=== PATIENT | male | born 1995 | race Caucasian/White ===

== ENCOUNTER 2020-02-26 17:37 | Emergency (ER) | payer MEDICAID, SELFPAY ==
[2020-02-26 17:58] VITALS: BP 153/107; PULSE 129; RESP 20; TEMP 37.1; O2SAT 95; BMI 27.2
--- NOTE | 2020-02-26 18:02 | HMH.EDUTC ---
[facility] [place] Impression: Viral syndrome Disposition: Home, Self-Care Condition on Discharge: Good Instructions: DI for Viral Syndrome, Preventing the Spread of Coronavirus Discharge Instructions Additional Instructions: Drink plenty of fluids. Take tylenol for pain or fever. Take the medications as directed. Follow up with your regular doctor. If you start to feel more short of breath or have other severe symptoms, please return to the ER. GO TO THE ER FOR ANY WORSENING SYMPTOMS FOLLOW THE DIRECTIONS ON THE COVID-19 HAND OUT THAT WE GAVE YOU REGARDING SELF-ISOLATION UNTIL YOU KNOW YOUR COVID-19 RESULTS Prescriptions: Ondansetron [Zofran 4mg ODT] 4 mg PO Q8HP PRN #20 tab.rapdis PRN Reason: Nausea Transmission Status: Received by [facility] Referrals: PCP,No [Primary Care Provider] - Forms: Work/School Release Time of Disposition: 18:29 Medical Decision Making - Medical Records Medical records reviewed: No: I reviewed the patient's medical records. - Julio Inquiry Pt receiving controlled substance: No Vital Signs: 02/26/20 17:58 02/26/20 18:35 Temperature 98.7 F 98.7 F Temperature Source Oral Oral Pulse Rate 129 H Pulse Rate [Radial] 129 H Respiratory Rate 20 20 Blood Pressure 153/107 H Blood Pressure [Right Arm] 153/107 H Blood Pressure Mean [Right Arm] 122 Blood Pressure Source Automatic Cuff Blood Pressure Source [Right Arm] Automatic Cuff Blood Pressure Position Sitting Blood Pressure Position [Right Arm] Sitting 02 Sat by Pulse Oximetry 95 Oxygen Delivery Method Room Air Room Air - Lab Data Lab results reviewed: Yes: I reviewed the patient's lab results. Lab Results 02/26/20 18:22: Influenza Type A Ag Negative, Influenza Type B Ag Negative 02/26/20 18:22: Strep Scn Rapid Clinic Negative Orders (Tests/Meds): ORDERS Category Date Time Status Covid-19 Nasal PCR Sendout Nikko Stat Lab 02/26/20 17:46 Received Strep Screen Confirmation Stat Micro 02/26/20 18:22 [place] [facility] [place] - General Stated complaint: chills cough Time Seen by Provider: 02/26/20 18:02 Mode of Arrival: Ambulatory Source of Information: Patient Limitations: No Limitations Description of Symptoms (Recalled from Triage Doc. by RN): chills, temp, weak, mild cough HEENT Symptoms (Recalled from RN notes): Yes Resp Symptoms (Recalled from RN notes): No Skin Symptoms (Recalled from RN notes): No MS Symptoms (Recalled from RN notes): No Functional Status (Recalled from RN notes): wnl - History of Present Illness Provider Complaint: He c/o feeling very bad, having body aches and chilling since last night at around 2200. He states that his symptoms are getting worse. He denies a signicant sore throat. He denies any known exposure to COVID-19. But, thru his work he has been around several people. - Related Data Previous Rx's Medication Instructions Recorded Ondansetron [Zofran 4mg ODT] 4 mg PO Q8HP PRN #20 tab.rapdis 02/26/20 Allergies Allergy/AdvReac Type Severity Reaction Status Date / Time No Known Allergies Allergy Verified 02/26/20 18:01 - Worker's Comp Is this a Worker's Comp case?: No [facility] History - Hepatitis A Screen Drug use history?: No High risk sexual behaviors?: No History of sexually transmitted infection?: No Currently employed?: No Childcare worker?: No Do you have indoor plumbing?: Yes Do you have electricity?: Yes Attestation statement:: This patient has been screened for Hepatitis A risk factors. I have reviewed the patient's past medical history: Yes - Social History Alcohol Intake: never Occupational Status: other ROS Obtained: Yes All systems reviewed & no additional complaints - Constitutional Constitutional: Reports chills, Reports fever(s), Reports poor appetite, Reports malaise - Eyes Eyes: Denies eye discharge - ENT Ears, Nose, Mouth, and Throat: Denies dizziness, Denies otalgia
[2020-02-26 18:22] LABS: UTC Strep Screen (Rapid) Negative (Negative)
[2020-02-26 18:23] LABS: UTC Influenza A Antigen Negative (Negative); UTC Influenza B Antigen Negative (Negative)
[2020-02-26 18:35] VITALS: BP 153/107; PULSE 129; RESP 20; TEMP 37.1; O2SAT 95
[2020-02-28 15:59] LABS: Covid-19 Nasal PCR Sendout Lex Not Detected
== END 2020-02-26 18:36 | disposition home or self-care (01) ==
PROVIDERS: Emergency Provider Nurse Practitioner Family
DX: B34.9 Viral infection, unspecified (principal); Z20.828 Contact with and (suspected) exposure to other viral communicable diseases
CPT/HCPCS: 87804; 87880; 99202; U0004

== ENCOUNTER 2023-07-10 16:59 | Emergency (ER) | payer MEDICAID, SELFPAY ==
[2023-07-10 17:15] VITALS: BP 159/90; PULSE 121; RESP 19; TEMP 37.2; O2SAT 98; BMI 28.7
--- NOTE | 2023-07-10 17:30 | EXP.UTC ---
Discharge Plan Disposition Patient Disposition: Home, Self-Care Condition: Good Referrals Follow up/Referrals: Provider,Referral, MD [Primary Care Provider] - See instructions Activity Restrictions/Add. Instructions Additional Instructions/Restrictions: No sign of a bacterial infection. Likely viral. Viruses can take 7-14 days to run their course. Nasal saline and bulb syringe or nose Delores to remove nasal drainage to help with nasal congestion. Hard to eat, drink, sleep with nasal congestion so important to keep this cleaned out. Monitor temp. Tylenol or Motrin as needed for pain or fever Encourage fluids, water, Gatorade, Powerade, Pedialyte if infant/toddler/child Warm salt water gargles Warm fluids Sore throat lozenges Sleep elevated Humidifier/vaporizer Follow-up immediately for new or worsening symptoms or no noticeable improvement over the next 48-72 hours. Clinical Impressions Clinical Impression: Influenza A Stand Alone Forms Stand Alone Forms: Work/School Release Instructions Patient Instructions: DI for Influenza -- Adult [facility]charge [facility] [facility] [place] General Stated complaint: body aches,chills,runny nose Mode of Arrival: Ambulatory Source of Information: Patient Limitations: No Limitations Time Seen by Provider: 07/10/23 17:30 Description of Symptoms (Recalled from Triage Doc. by RN): PATIENT C/O COUGH, SORE THROAT AND CHILLS X 4 DAYS HEENT Symptoms (Recalled from RN notes): Yes Resp Symptoms (Recalled from RN notes): Yes Skin Symptoms (Recalled from RN notes): No MS Symptoms (Recalled from RN notes): No Functional Status (Recalled from RN notes): WNL History of Present Illness Provider Complaint: 28 yr old male presents for cough, sore throat and chills for 4 days Related Data Allergies Allergy/AdvReac Type Severity Reaction Status Date / Time No Known Allergies Allergy Verified 02/26/20 18:01 Worker's Comp Is this a Worker's Comp case?: No [facility] Disclaimer: The information contained in this section may have been updated after the patient was seen, as this information can be updated by other users. Social History , [employer]) Smoking Status: Smoker, status unknown alcohol intake: never current occupational status: other Travel in the last 8 weeks: None ROS Obtained: Yes All systems reviewed & no additional complaints except as documented Constitutional Constitutional: Reports system reviewed and no additional complaints, except as documented, Reports as per HPI and Reports fever(s) Eyes Eyes: Reports system reviewed and no additional complaints, except as documented ENT Ears, Nose, Mouth, and Throat: Reports system reviewed and no additional complaints, except as documented, Reports as per HPI, Reports nasal congestion, Reports nasal discharge, Reports sinus pain, Reports sinus pressure and Reports sore throat Cardiovascular Cardiovascular: Reports system reviewed and no additional complaints, except as documented Respiratory Respiratory: Reports system reviewed and no additional complaints, except as documented Gastrointestinal Gastrointestingal: Reports system reviewed and no additional complaints, except as documented Integumentary/Breasts Skin/Breast: Reports system reviewed and no additional complaints, except as documented Neurologic Neurologic: Reports system reviewed and no additional complaints, except as documented Hematologic/Lymphatic Henatologic/Lymphatic: Reports system reviewed and no additional complaints, except as documented Allergic/Immunologic Allergic/Immunologic: Reports system reviewed and no additional complaints, except as documented Physical Exam General General appearance: alert and in no apparent distress Head Head exam: atraumatic Eye Eye exam: Present normal appearance and PERRL ENT ENT exam: Present normal exam, normal oropharynx, mucous membranes moist and TM's normal bilaterally Respiratory Respiratory exam: Present normal lung sounds bilaterally Cardiovascular Cardiovascular exam: Present regular rate and normal rhythm Neurological Exam Neurological exam: Present alert and oriented X3 Skin Skin exam: Present warm and intact Lymphatic Lymphatic Findings: no adenopathy Medical Decision Making Medical Records Medical records reviewed: Yes I reviewed the patient's medical records. Julio Inquiry Pt receiving controlled substance: No Julio was queried for this patient: No Vital Signs: 07/10/23 17:15 Temperature 98.9 F Temperature Source Oral Pulse Rate [Right Brachial] 121 H Respiratory Rate 19 Blood Pressure [Right Arm] 159/90 H Blood Pressure Mean [Right Arm] 113 Blood Pressure Source [Right Arm] Automatic Cuff Blood Pressure Position [Right Arm] Sitting 02 Sat by Pulse Oximetry 98 Oxygen Delivery Method Room Air Lab Data Lab results reviewed: Yes I reviewed the patient's lab results.
[2023-07-10 17:38] LABS: UTC Influenza A Antigen Positive (Negative); UTC Influenza B Antigen Negative (Negative); UTC Strep Screen (Rapid) Negative (Negative)
[2023-07-10 17:39] VITALS: BP 159/90; PULSE 121; RESP 19; TEMP 37.2; O2SAT 98
== END 2023-07-10 17:51 | disposition home or self-care (01) ==
PROVIDERS: Emergency Provider Nurse Practitioner Family
DX: J10.1 Influenza due to other identified influenza virus with other respiratory manifestations (principal); R05.9 Cough, unspecified; R09.81 Nasal congestion; R50.9 Fever, unspecified; R07.0 Pain in throat
CPT/HCPCS: 87804; 87880; 99203; 99212; G0463

== ENCOUNTER 2025-04-25 10:24 | Observation (INO) | payer SELFPAY ==
[2025-04-25 10:30] VITALS: BP 110/84; PULSE 103; RESP 16; TEMP 37.1; O2SAT 100; O2SAT 97; BMI 31.5
--- NOTE | 2025-04-25 10:39 | CT_ITS ---
FINAL REPORT TECHNIQUE: Thin section axial images are obtained through the abdomen and pelvis after intravenous contrast. Reconstruction images were obtained from the axial data. Exam was performed using dose reduction techniques. CLINICAL HISTORY: Possible abscess, perineum FINDINGS: LUNG BASES: Lung bases are clear. Heart size is normal. LIVER: The fusilli fatty infiltrated. No focal lesion. GALLBLADDER/BILIARY SYSTEM: Gallbladder is present. No gallstones. No biliary dilatation. SPLEEN: Mildly enlarged at 14 cm. PANCREAS: Unremarkable. ADRENALS: Unremarkable. KIDNEYS/URETERS/BLADDER: No hydronephrosis, renal mass, or renal stone. Unremarkable urinary bladder. GI TRACT: No small bowel obstruction or dilatation. Normal appendix. No acute colon abnormality. PELVIC ORGANS: Prostate normal in size for for age. LYMPH NODES/RETROPERITONEUM/MESENTERY: No lymphadenopathy. No abdominal aortic aneurysm. ABDOMINAL WALL: The abdominal wall is intact. FREE FLUID: No ascites. BONES: No acute osseous abnormality. OTHER: There is a collection along the left medial gluteal fold measuring 45 x 19 mm which contacts the posterior left anus concerning for abscess. Remaining perianal soft tissues are unremarkable. There is no soft tissue air. IMPRESSION: Collection along the left medial gluteal fold concerning for abscess which may contact the posterior left anus. Anal fistula not excluded. Fatty infiltration of the liver and mild splenomegaly. Reviewed, Interpreted and Dictated by Sima Andres MD Transcribed by Erlinda Hoff Authenticated and [facility]
--- NOTE | 2025-04-25 10:44 | ED_ITS ---
Discharge Plan Disposition Patient Disposition: Admitted Condition: Fair Clinical Impressions Clinical Impression: Perianal abscess Discharge ED Provider: Nate Romero General Adult HPI General Chief complaint: Skin/Abscess/Foreign Body Stated complaint: infection/abcess on buttox Time Seen by Provider: 04/25/25 10:36 Mode of Arrival: Ambulatory Source of Information: Patient Description of Symptoms (Recalled from ER Triage Doc. by RN): PATIENT PRESENTS TO ED FOR ABSCESS NEAR HIS BUTTOCKS IN THE GROIN AREA. STATES THIS HAS BEEN THERE FOR A WHILE AND IS VERY UNCOMFORTABLE SITTING DOWN. History of Present Illness HPI narrative: Wilner Newman is a 30M with no significant past medical history who presents to the emergency department for complaints of possible abscess to his left gluteal/perineum area. Patient states that has been present over the last several months, however he has not had insurance and has not been able to have it looked at. He states that over the last 2 days, it has become increasingly swollen and painful and it is difficult to sit on it due to pain. He denies any fevers. He does report pain with defecation but no dysuria, hematuria or scrotal swelling. States that nothing like this has ever happened before. Related Data Home Medications ?Medication ?Instructions ?Recorded ?Confirmed cetirizine 10 mg tablet 10 mg PO DAILY PRN allergies 04/25/25 04/25/25 Allergies Allergy/AdvReac Type Severity Reaction Status Date / Time No Known Allergies Allergy Verified 02/26/20 18:01 [facility] Disclaimer: The information contained in this section may have been updated after the patient was seen, as this information can be updated by other users. Medical History (Updated 04/25/25 @ 17:24 by Delores Rivera RN) Seasonal allergies Surgical History (Updated 04/25/25 @ 17:25 by Delores Rivera RN) H/O wisdom tooth extraction Social History (Updated 04/25/25 @ 17:25 by Delores Rivera RN) Smoking Status: Never smoker alcohol intake: never current occupational status: other Travel in the last 8 weeks?: None Have you lived/traveled outside US in past 30 days?: No Contact w/someone who lives/traveled outside US past 30 days?: No Exposure to someone with infectious disease in past 14 days?: No Do you have a fever (greater than 100.4 F or 38 C)?: No Have you tested positive for COVID-19?: No Exposed to someone with COVID-19 in past 14 days?: No Do you have a sore throat?: No Do you have a cough?: No Do you have any weakness?: No Do you have any diarrhea?: No Are you experiencing any unusual bleeding?: No Do you have any muscle aches/pain?: No Do you have any abdominal pain?: No Are you experiencing loss of taste or smell?: No ROS Obtained: Yes Systems reviewed as appropriate & no additional complaints except as documented Physical Exam General General appearance: alert, in no apparent distress and anxious Head Head exam: atraumatic Eye Eye exam: Present normal appearance ENT ENT exam: Present normal external ear exam Neck Neck exam: Present full ROM Chest Chest inspection: Present symmetric chest wall rise Respiratory Respiratory exam: Present normal lung sounds bilaterally; Absent respiratory distress, wheezes or stridor Cardiovascular Cardiovascular exam: Present regular rate and normal rhythm Abdominal Exam Abdominal exam: Present soft; Absent tenderness or guarding Rectal Exam comment: Ecchymosis, fluctuance and erythema to the left medial gluteal fold close to the perineum. exam: Present other (Significant erythema, fluctuance and tenderness to the left medial gluteal fold just posterior to the perineum. This does not appear to involve the scrotum. It may involve the rectum.) Extremities Exam Extremities exam: Present normal inspection Back Exam Back exam: Present normal inspection Neurological Exam Neurological exam: Present alert and oriented X3 Psychiatric Psychiatric exam: Present normal affect Skin Skin exam: Present warm and dry Medical Decision Making Medical Records Screening: Per USPSTF and CDC recommendations, given the prevalence of disease in our region, it is our hospital?s policy to screen for HIV and viral Hepatitis for all patients aged 18 and over and those with ongoing risk factors. Julio Inquiry Pt receiving controlled substance: No Vital Signs: 04/25/25 10:30 04/25/25 10:30 04/25/25 10:30 Temperature 98.8 F 98.8 F Temperature Source Oral Pulse Rate 103 H Pulse Rate [Right] 103 H Respiratory Rate 16 16 Blood Pressure 110/84 110/84 Blood Pressure [Right Arm] 110/84 Blood Pressure Mean [Right Arm] 92 Blood Pressure Source [Right Arm] Blood Pressure Position [Right Arm] 02 Sat by Pulse Oximetry 97 97 100 Oxygen Delivery Method 04/25/25 10:45 04/25/25 17:10 04/25/25 17:16 Temperature 97.9 F 98.3 F Temperature Source Oral Pulse Rate 99 H 88 Pulse Rate [Right] 79 Respiratory Rate 16 16 Blood Pressure 145/100 H 131/93 H Blood Pressure [Right Arm] 131/79 Blood Pressure Mean [Right Arm] 96 Blood Pressure Source [Right Arm] Automatic Cuff Blood Pressure Position [Right Arm] Supine 02 Sat by Pulse Oximetry 96 98 Oxygen Delivery Method Room Air Room Air Lab Data Lab Results 04/25/25 11:00: WBC 10.0, RBC 5.55, Hgb 15.9, Hct 45.6, MCV 82.2, MCH 28.6, MCHC 34.9, RDW 12.5, Plt Count 185, MPV 9.9, Neut % (Auto) 63.5, Lymph % (Auto) 23.7, Grayson % (Auto) 6.4, Eos % (Auto) 5.6, Baso % (Auto) 0.4, Neut # (Auto) 6.3, Lymph # (Auto) 2.4, Grayson # (Auto) 0.6, Eos # (Auto) 0.6 H, Baso # (Auto) 0.0, Sodium 137, Potassium 4.0, Chloride 104, Carbon Dioxide 27, Anion Gap 10.0, BUN 11, Creatinine 0.90, Estimated Creat Clear 169, Estimated GFR 99, Est GFR ( Amer) 120, Glucose 97, Calcium 9.5, Total Bilirubin 1.6 H, AST 35, ALT 57, Alkaline Phosphatase 69, C-Reactive Protein 6.8 H, Total Protein 8.0, Albumin 5.0, Globulin 3.0, Albumin/Globulin Ratio 1.7 04/25/25 11:29: Urine Color Yellow, Urine Appearance Clear, Urine pH 6.5, Ur Specific Dumont 1.010, Urine Protein Negative, Urine Glucose (UA) Negative, Urine Ketones Negative, Urine Blood Negative, Urine Nitrate Negative, Urine Bilirubin Negative, Urine Urobilinogen 0.2, Ur Leukocyte Esterase Negative, Urine RBC None, Urine WBC None, Ur Squamous Epith Cells Occasional, Urine Bacteria Trace 04/25/25 11:00 04/25/25 11:00 Orders (Tests/Meds): ED MEDICATIONS Generic Name Dose Route Start Last Admin Trade Name Freq PRN Reason Stop Dose Admin Acetaminophen 650 mg 04/25/25 18:42 Acetaminophen 325mg Tab PO 05/25/25 18:41 Q4HP PRN Fever or Mild Pain (1-3) Hydrocodone Bitart/Acetaminophen 1 tab 04/25/25 18:42 Hydrocodone/Apap 5/325 Mg Tablet PO 05/25/25 18:41 Q4HP PRN Moderate Pain (4-6) Piperacillin Sod/Tazobactam 50 mls @ 100 mls/hr 04/26/25 00:00 Sod 3.375 gm/ Sodium Chloride IV 05/06/25 00:00 Q6H ROXANA Vancomycin HCl 2,000 mg/ 250 mls @ 125 mls/hr 04/25/25 19:45 Sodium Chloride IV 04/25/25 21:44 ONCE ONE Miscellaneous 1 each 04/25/25 16:30 04/25/25 18:31 Vancomycin Consult Request NOTAPPLIC 05/25/25 16:29 Not Given [facility] Miscellaneous 1 each 04/25/25 19:00 04/25/25 19:33 Vancomycin Consult Request NOTAPPLIC 05/25/25 18:59 Not Given [facility] Morphine Sulfate 4 mg 04/25/25 18:42 Morphine 4mg/Ml Syringe IV 05/25/25 18:41 Q4HP PRN Severe Pain (7-10) Ondansetron HCl 4 mg 04/25/25 18:42 Ondansetron 4mg/2ml Vial IV 05/25/25 18:41 Q6HP PRN Nausea Discontinued Medications Generic Name Dose Route Start Last Admin Trade Name Bhakti PRN Reason Stop Dose Admin Piperacillin Sod/Tazobactam 100 mls @ 200 mls/hr 04/25/25 16:27 04/25/25 19:33 Sod 4.5 gm/ Sodium Chloride IV 04/25/25 16:56 Infused ONCE ONE Infusion Vancomycin HCl 2,000 mg/ 250 mls @ 125 mls/hr 04/25/25 16:45 04/25/25 19:37 Sodium Chloride IV 04/25/25 18:44 Not Given ONCE ONE Iopamidol 75 ml 04/25/25 11:21 04/25/25 11:22 Iopamidol-370 (76%);100ml Bottle IV 04/25/25 11:22 75 ml ONCE ONE Administration Sodium Chloride 10 ml 04/25/25 11:21 04/25/25 11:22 Sodium Chloride 0.9% 10ml Syr (Rad Only) IV 04/25/25 11:22 10 ml ONCE ONE Administration ORDERS Category Date Time Status CT abdomen pelvis w con Stat Cat Scan 04/25/25 10:39 Completed CBC w/Auto Diff [Complete Blood Count Auto Diff] Stat Lab 04/25/25 11:00 Completed CMP [Comprehensive Metabolic Panel] Stat Lab 04/25/25 11:00 Completed CRP [C-Reactive Protein] Stat Lab 04/25/25 11:00 Completed UA [Urinalysis and Microscopic] Stat Lab 04/25/25 11:29 Completed Blood Culture Stat Micro 04/25/25 17:00 Received Medical Decision Narrative: Wilner Newman is a 30M with no significant past medical history who presents to the emergency department for complaints of possible abscess to his left gluteal/perineum area. Patient states that has been present over the last several months, however he has not had insurance and has not been able to have it looked at. He states that over the last 2 days, it has become increasingly swollen and painful and it is difficult to sit on it due to pain. He denies any fevers or abdominal pain. He does report pain with defecation but no dysuria, hematuria or scrotal swelling. States that nothing like this has ever happened before. On arrival, patient is normotensive, mildly tachycardic, afebrile, oxygen saturation appropriate on room air. Physical exam, as stated above, revealed an overall well-appearing male in no respiratory distress. He does appear anxious and somewhat uncomfortable. Genital and buttock exam shows area of swelling, fluctuance and ecchymosis to the left gluteal fold along the medial aspect close to the perineum. It does not appear to involve the scrotum with no scrotal swelling or erythema. It is within close proximity to the rectum. Differential diagnosis includes, but is not limited to: Gluteal abscess, perirectal abscess, rectal abscess, AVM, among others. The most morbid conditions were considered and workup was based on these. Workup in the emergency department clued: CT abdomen pelvis with IV contrast, CBC with differential, CMP, urinalysis. Patient was offered pain medication, however he declines at this time. Workup shows no leukocytosis, No anemia, platelets within normal limits, electrolytes within normal limits. Total bilirubin mildly elevated 1.6. Urine without evidence of infection or blood. CT scan was interpreted by me personally. Patient has a collection along the left medial gluteal fold that tracks to the posterior left anus and this is concerning for abscess. Per radiology, it measures 45 x 19 mm. The remaining perianal soft tissues are unremarkable. Per radiology, anal fistula is not excluded. Given these findings, I do think patient would benefit from colorectal surgery evaluation as he may need a operative drainage of abscess with fistulotomy. Will discuss patient's case with the [facility]. I did discuss patient's case with Dr. Ramirez at the [facility] center who stated that they are on divert and would need to talk to the colorectal surgery team prior to accepting this patient, however they will be in the operating room until 8 PM and would likely not be available until then. Given this, I did discuss patient's case with Dr. Hoskins with the [facility] general surgery team and he stated that he would recommend patient be admitted with IV antibiotics and he will see the patient in the morning and likely perform I&D and determine if operative intervention is needed at that point. Recommended n.p.o. at midnight. I did discuss this plan with patient and his and they were in agreement to proceed with admission at this time. Patient was then started on IV vancomycin and Zosyn. I then discussed the patient's case with Dr. Ramirez with the hospital medicine service who accepted the patient for admission. Critical Care Critical Care Time Critical Care Time: No
[2025-04-25 10:45] VITALS: BP 145/100; PULSE 99; O2SAT 96
[2025-04-25 11:08] LABS: Hematocrit 45.6 % (42.0-52.0); Hemoglobin 15.9 g/dL (14.1-18.0); Immature Granulocytes % 0.4 %; Mean Corpuscular HGB Conc 34.9 g/dL (31.8-35.4); Mean Corpuscular Hemoglobin 28.6 pg (27.0-31.2); Mean Corpuscular Volume 82.2 fl (80-94); Nucleated Red Blood Cells % 0 %; Platelet Count 185 K/mm3 (142-424); Red Blood Count 5.55 M/mm3 (4.60-6.20); Red Cell Distribution Width-SD 37.1 fL; White Blood Count 10.0 K/mm3 (4.8-10.8)
[2025-04-25] MEDS: IOPAMIDOL-370 (76%);100ML BOTTLE 75 ML IV (11:22)
[2025-04-25] MEDS: SODIUM CHLORIDE 0.9% 10ML SYR (RAD ONLY) 10 ML IV (11:22)
[2025-04-25 11:26] LABS: Alanine Aminotransferase 57 U/L (12-78); Albumin Level 5.0 g/dl (3.5-5.0); Albumin/Globulin Ratio 1.7 (1.1-1.8); Alkaline Phosphatase 69 U/L (38-126); Anion Gap 10.0 mEq/L (5-15); Aspartate Amino Transferase 35 U/L (17-59); Bilirubin,Total 1.6 mg/dl (0.2-1.3); Blood Urea Nitrogen 11 mg/dl (9-20); Calcium 9.5 mg/dl (8.4-10.2); Carbon Dioxide 27 mmol/L (22.0-30.0); Chloride 104 mmol/L (98-107); Creatinine Clearance Estimated 169 mL/min (50-200); Creatinine,Serum 0.90 mg/dl (0.66-1.25); Estimated Glomerular Filt Rate 99 ml/min (>60); GFR (African American) 120 ML/MIN (>60); Globulin 3.0 g/dL (1.3-3.2); Glucose 97 mg/dl (74-100); Potassium 4.0 mmoL/L (3.5-5.1); Sodium 137 mmol/L (136-145); Total Protein,Serum 8.0 g/dl (6.3-8.2)
[2025-04-25 11:41] LABS: Microscopic, Urine URINE MICROSCOPIC (MICROSCOPIC)
[2025-04-25 11:50] LABS: Bilirubin,Urine Negative (Negative); Color,Urine YELLOW (Yellow); Glucose,Urine (UA) Negative (Negative); Ketones,Urine Negative (Negative); Leukocyte Esterase,Urine Negative (Negative); PH,Urine 6.5 (5.0-8.5); Protein,Urine Negative (Negative); Specific Gravity, Urine 1.010 (1.005-1.030); Urobilinogen,Urine 0.2 EU/dl (0.2)
--- NOTE | 2025-04-25 11:57 | PC.NURSE ---
Rounded on patient, no needs voiced at this time.
[2025-04-25 12:02] LABS: Bacteria,Urine Trace /lpf; Squamous Epithelial Cell,Urine Occasional #/hpf (0-5)
--- NOTE | 2025-04-25 12:44 | PC.NURSE ---
called [facility] per Dr Dupree for transfer for a perianal abscess with fistula. [facility] advised they would call back.
--- NOTE | 2025-04-25 13:52 | PC.NURSE ---
[facility] called and have not received imaging. Rad called and they will resend. This note by JeovannyRn
--- NOTE | 2025-04-25 15:10 | PC.NURSE ---
currently on phone with [facility] to check on status of transfer. [facility] advised colorectal was in surgery until 20:00
--- NOTE | 2025-04-25 15:18 | PC.NURSE ---
called [facility] per Dr Romero for transfer for perianal abscess with fistula. [facility] advised they would call back.
--- NOTE | 2025-04-25 15:29 | PC.NURSE ---
currently on phone with [facility] for transfer for perianal abscess with fistula.
--- NOTE | 2025-04-25 15:31 | PC.NURSE ---
[facility] advised they would call back.
--- NOTE | 2025-04-25 16:10 | PC.NURSE ---
Dr Romero on phone with [facility] at this time
--- NOTE | 2025-04-25 16:15 | PC.NURSE ---
Surgeon integrity consultant paged for Dr. Romero
[2025-04-25 16:50] LABS: C-Reactive Protein 6.8 mg/L (0-4)
--- NOTE | 2025-04-25 16:59 | PC.NURSE ---
REPORT GIVEN TO ESPERANZA RUSSELL FOR ROOM 219
[2025-04-25 17:10] VITALS: BP 131/79; PULSE 79; RESP 16; TEMP 36.6; O2SAT 98; BMI 30.7
[2025-04-25 17:16] VITALS: BP 131/93; PULSE 88; RESP 16; TEMP 36.8; O2SAT 96
[2025-04-25] MEDS: PIPERACILLIN/TAZO 4.5 GM in 0.9 % SODIUM CHLORIDE 100 ML IV (18:24)
--- NOTE | 2025-04-25 18:32 | PC.NURSE ---
pt resting in bed, A/O x4, call light in reach
--- NOTE | 2025-04-25 18:44 | P.HP_ITS ---
History of Present Illness *Admission Date: 04/25/25 *Reason for visit:: Perineal abscess *History of present illness: Wilner Newman is a 30-year-old male without a significant medical history presents with progressive pain and a lump in the perianal area. Patient states he has felt a lump for a few weeks which has progressively gotten more painful but has not had much drainage. He states he has been dealing this for a few months, thinks it may have started after shaving in the perianal area. Denies fever/chills, but endorses an episode of suspected hemorrhoidal bleed about a month ago. Otherwise no known GI bleeding history, abdominal pains, family history of inflammatory bowel disease. Workup in the ED significant for CT abdomen/pelvis revealing left medial gluteal fold collection concerning for abscess, anal fistula could not be excluded. Also revealed fatty liver and mild splenomegaly. Given this finding, ED discussed case with general surgery who recommended admission with IV antibiotics and I&D in the morning. ED provider discussed case with me and I decided to admit patient for further evaluation management. [facility] Disclaimer: The information contained in this section may have been updated after the patient was seen, as this information can be updated by other users. Medical History (Updated 04/25/25 @ 17:24 by Delores Rivera RN) Seasonal allergies Surgical History (Updated 04/25/25 @ 17:25 by Delores Rivera RN) H/O wisdom tooth extraction Social History (Updated 04/25/25 @ 17:25 by Delores Rivera RN) Smoking Status: Never smoker alcohol intake: never current occupational status: other Travel in the last 8 weeks?: None Have you lived/traveled outside US in past 30 days?: No Contact w/someone who lives/traveled outside US past 30 days?: No Exposure to someone with infectious disease in past 14 days?: No Do you have a fever (greater than 100.4 F or 38 C)?: No Have you tested positive for COVID-19?: No Exposed to someone with COVID-19 in past 14 days?: No Do you have a sore throat?: No Do you have a cough?: No Do you have any weakness?: No Do you have any diarrhea?: No Are you experiencing any unusual bleeding?: No Do you have any muscle aches/pain?: No Do you have any abdominal pain?: No Are you experiencing loss of taste or smell?: No Other Medical History Have you received the Flu Vaccine for this season: Yes Have you received the Pneumonia Vaccine: No Meds Home Medications and Allergies Home Medications ?Medication ?Instructions ?Recorded ?Confirmed ?Type cetirizine 10 mg tablet 10 mg PO DAILY PRN allergies 04/25/25 04/25/25 History New Prescriptions to Start Prescriptions: Allergies Allergy/AdvReac Type Severity Reaction Status Date / Time No Known Allergies Allergy Verified 02/26/20 18:01 Exam Data for Last 24 hours Vital signs and Labs for Last 24 Hours: Temp Pulse Resp BP Pulse Ox O2 Del Method 98.3 F 88 16 131/93 H 98 Room Air 04/25/25 17:16 04/25/25 17:16 04/25/25 17:16 04/25/25 17:16 04/25/25 17:10 04/25/25 17:10 Laboratory Results - last 24 hr 04/25/25 11:00: WBC 10.0, RBC 5.55, Hgb 15.9, Hct 45.6, MCV 82.2, MCH 28.6, MCHC 34.9, RDW 12.5, Plt Count 185, MPV 9.9, Neut % (Auto) 63.5, Lymph % (Auto) 23.7, [place] % (Auto) 6.4, Eos % (Auto) 5.6, Baso % (Auto) 0.4, Neut # (Auto) 6.3, Lymph # (Auto) 2.4, [place] # (Auto) 0.6, Eos # (Auto) 0.6 H, Baso # (Auto) 0.0, Sodium 137, Potassium 4.0, Chloride 104, Carbon Dioxide 27, Anion Gap 10.0, BUN 11, Creatinine 0.90, Estimated Creat Clear 169, Estimated GFR 99, Est GFR ( Amer) 120, Glucose 97, Calcium 9.5, Total Bilirubin 1.6 H, AST 35, ALT 57, Alkaline Phosphatase 69, C-Reactive Protein 6.8 H, Total Protein 8.0, Albumin 5.0, Globulin 3.0, Albumin/Globulin Ratio 1.7 04/25/25 11:29: Urine Color Yellow, Urine Appearance Clear, Urine pH 6.5, Ur Specific [place] 1.010, Urine Protein Negative, Urine Glucose (UA) Negative, Urine Ketones Negative, Urine Blood Negative, Urine Nitrate Negative, Urine Bilirubin Negative, Urine Urobilinogen 0.2, Ur Leukocyte Esterase Negative, Urine RBC None, Urine WBC None, Ur Squamous Epith Cells Occasional, Urine Bacteria Trace I & O for Last 24 hours: Intake & Output 04/22/25 04/23/25 04/24/25 04/25/25 23:59 23:59 23:59 23:59 Intake Total 360 / 360 Balance 360 / 360 Weight 97.296 kg Constitutional Constitutional: no acute distress *Routine HEENT Exam Head: Present normocephalic Eye: Present EOMI and PERRL ENT: Present mucous membranes moist *Routine Neck Exam Neck: Present supple; Absent lymphadenopathy *Routine Respiratory Exam Respiratory: Present CTA bilaterally *Routine Cardiovascular Exam Cardiovascular: Present RRR *Routine Abdominal Exam Abdominal: Present soft and normoactive bowel sounds; Absent tenderness *Routine Rectal Exam Rectal:: deferred *Routine Genitalia Exam Genitalia:: deferred *Routine Extremities Exam Extremities: Absent cyanosis, clubbing or edema *Routine Skin Exam Skin: Present warm; Absent rash *Routine Neurological Exam Neurological: Present alert and oriented X3 Assessment and Plan *Assessment and plan (1) Perianal abscess: Status: Acute Category: Medical Code(s): K61.0 - Anal abscess Plan Wilner Newman is a 30-year-old male without a significant medical history presents with progressive pain and a lump in the perianal area. Patient states he has felt a lump for a few weeks which has progressively gotten more painful but has not had much drainage. He states he has been dealing this for a few months, thinks it may have started after shaving in the perianal area. Denies fever/chills, but endorses an episode of suspected hemorrhoidal bleed about a month ago. Otherwise no known GI bleeding history, abdominal pains, family history of inflammatory bowel disease. Workup in the ED significant for CT abdomen/pelvis revealing left medial gluteal fold collection concerning for abscess, anal fistula could not be excluded. Also revealed fatty liver and mild splenomegaly. Given this finding, ED discussed case with general surgery who recommended admission with IV antibiotics and I&D in the morning. ED provider discussed case with me and I decided to admit patient for further evaluation management. #Perianal abscess ? Presents with worsening lump and pain in the perianal area, CT abdomen/pelvis on admission revealed 4.5 x 1.9 cm perianal abscess. ? Initial WBC 10.0, CRP 6.8, no signs of sepsis. ? General Surgery consulted, planning for I&D in the morning. Recommended IV antibiotics. N.p.o. at midnight. ? Continue vancomycin, Zosyn 3.375 every 6 hours. ? At this time low suspicion for inflammatory bowel disease given insignificant GI bleeding, and abdominal pain. ? Follow-up blood, surgical cultures. ? N.p.o. at midnight. ? Follow-up A1c, morning CBC. ? Of note, patient does not have insurance. Will discuss with case management and financial assistance. #Fatty liver disease #Splenomegaly ? Seen on CT abdomen/pelvis. Follow-up lipid panel. Full code DVT prophylaxis: IPC's
[2025-04-25] MEDS: VANCOMYCIN HCL 2,000 MG in 0.9 % SODIUM CHLORIDE 250 ML 125 MG IV (19:58)
[2025-04-25 20:00] VITALS: BP 122/73; PULSE 91; RESP 16; TEMP 36.8; O2SAT 99
[2025-04-25] MEDS: PIPERCILLIN/TAZO 3.375 GM in 0.9 % SODIUM CHLORIDE 50 ML IV (23:21)
[2025-04-26] VITALS (15 sets, daily range): BP systolic 109–139; BP diastolic 61–94; PULSE 84–96; RESP 12–20; TEMP 36.6–37; O2SAT 91–99; BMI 30.7
[2025-04-26] MEDS: VANCOMYCIN/WATER FOR INJ (PEG) 1.25 GM/250 ML PIGGYBACK IV (03:43)
--- NOTE | 2025-04-26 04:37 | PC.NURSE ---
denies pain t/o shift and no acute changes. patient has been NPO since midnight, ambulated hallway - spouse at bedside.
[2025-04-26] MEDS: PIPERCILLIN/TAZO 3.375 GM in 0.9 % SODIUM CHLORIDE 50 ML IV (05:45)
[2025-04-26 06:16] LABS: Hematocrit 44.7 % (42.0-52.0); Hemoglobin 15.2 g/dL (14.1-18.0); Immature Granulocytes % 0.5 %; Mean Corpuscular HGB Conc 34.0 g/dL (31.8-35.4); Mean Corpuscular Hemoglobin 27.9 pg (27.0-31.2); Mean Corpuscular Volume 82.0 fl (80-94); Nucleated Red Blood Cells % 0 %; Platelet Count 175 K/mm3 (142-424); Red Blood Count 5.45 M/mm3 (4.60-6.20); Red Cell Distribution Width-SD 37.2 fL; White Blood Count 11.0 K/mm3 (4.8-10.8)
[2025-04-26 06:34] LABS: Alanine Aminotransferase 47 U/L (12-78); Albumin Level 4.6 g/dl (3.5-5.0); Albumin/Globulin Ratio 1.6 (1.1-1.8); Alkaline Phosphatase 69 U/L (38-126); Anion Gap 14.0 mEq/L (5-15); Aspartate Amino Transferase 30 U/L (17-59); Bilirubin,Total 2.2 mg/dl (0.2-1.3); Blood Urea Nitrogen 11 mg/dl (9-20); Calcium 9.0 mg/dl (8.4-10.2); Carbon Dioxide 23 mmol/L (22.0-30.0); Chloride 104 mmol/L (98-107); Creatinine Clearance Estimated 165 mL/min (50-200); Creatinine,Serum 0.90 mg/dl (0.66-1.25); Estimated Glomerular Filt Rate 99 ml/min (>60); GFR (African American) 120 ML/MIN (>60); Globulin 2.8 g/dL (1.3-3.2); Glucose 94 mg/dl (74-100); Potassium 4.0 mmoL/L (3.5-5.1); Sodium 137 mmol/L (136-145); Total Protein,Serum 7.4 g/dl (6.3-8.2)
--- NOTE | 2025-04-26 06:51 | P.CONS_ITS ---
History of Present Illness *Admission Date: 04/25/25 *Reason for visit:: Left gluteal fold/perianal abscess *History of present illness: This is a 30-year-old gentleman seen in consultation after evaluation emergency department for increasing perianal/medial buttock swelling/pain. See HPI forwarded from admission H&P below. Forwarded from admission H&P: Wilner Newman is a 30-year-old male without a significant medical history presents with progressive pain and a lump in the perianal area. Patient states he has felt a lump for a few weeks which has progressively gotten more painful but has not had much drainage. He states he has been dealing this for a few months, thinks it may have started after shaving in the perianal area. Denies fever/chills, but endorses an episode of suspected hemorrhoidal bleed about a month ago. Otherwise no known GI bleeding history, abdominal pains, family history of inflammatory bowel disease. Workup in the ED significant for CT abdomen/pelvis revealing left medial gluteal fold collection concerning for abscess, anal fistula could not be excluded. Also revealed fatty liver and mild splenomegaly. Given this finding, ED discussed case with general surgery who recommended admission with IV antibiotics and I&D in the morning. ED provider discussed case with me and I decided to admit patient for further evaluation management. [facility] Disclaimer: The information contained in this section may have been updated after the patient was seen, as this information can be updated by other users. Medical History (Updated 04/26/25 @ 06:54 by Palomo Hoskins MD) Seasonal allergies Surgical History (Updated 04/25/25 @ 17:25 by Delores Rivera RN) H/O wisdom tooth extraction Social History (Updated 04/25/25 @ 17:25 by Delores Rivera RN) Smoking Status: Never smoker alcohol intake: never current occupational status: other Travel in the last 8 weeks?: None Have you lived/traveled outside US in past 30 days?: No Contact w/someone who lives/traveled outside US past 30 days?: No Exposure to someone with infectious disease in past 14 days?: No Do you have a fever (greater than 100.4 F or 38 C)?: No Have you tested positive for COVID-19?: No Exposed to someone with COVID-19 in past 14 days?: No Do you have a sore throat?: No Do you have a cough?: No Do you have any weakness?: No Do you have any diarrhea?: No Are you experiencing any unusual bleeding?: No Do you have any muscle aches/pain?: No Do you have any abdominal pain?: No Are you experiencing loss of taste or smell?: No Review of Systems Review of Systems Review of systems:: pertinent systems reviewed and negative unless documented below *Gastrointestinal Gastrointestinal: Reports as per HPI Integumentary/Breasts Skin/Breast: Reports as per HPI Meds Home Medications and Allergies Home Medications ?Medication ?Instructions ?Recorded ?Confirmed ?Type cetirizine 10 mg tablet 10 mg PO DAILY PRN allergies 04/25/25 04/25/25 History New Prescriptions to Start Prescriptions: Allergies Allergy/AdvReac Type Severity Reaction Status Date / Time No Known Allergies Allergy Verified 02/26/20 18:01 Exam (Inpt) Vital signs and Labs for Last 24 Hours: Temp Pulse Resp BP Pulse Ox O2 Del Method 98.3 F 91 H 16 122/73 99 Room Air 04/25/25 20:00 04/25/25 20:00 04/25/25 20:00 04/25/25 20:00 04/25/25 20:00 04/26/25 06:34 Laboratory Results - last 24 hr 04/25/25 11:00: WBC 10.0, RBC 5.55, Hgb 15.9, Hct 45.6, MCV 82.2, MCH 28.6, MCHC 34.9, RDW 12.5, Plt Count 185, MPV 9.9, Neut % (Auto) 63.5, Lymph % (Auto) 23.7, [place] % (Auto) 6.4, Eos % (Auto) 5.6, Baso % (Auto) 0.4, Neut # (Auto) 6.3, Lymph # (Auto) 2.4, [place] # (Auto) 0.6, Eos # (Auto) 0.6 H, Baso # (Auto) 0.0, Sodium 137, Potassium 4.0, Chloride 104, Carbon Dioxide 27, Anion Gap 10.0, BUN 11, Creatinine 0.90, Estimated Creat Clear 169, Estimated GFR 99, Est GFR ( Amer) 120, Glucose 97, Calcium 9.5, Total Bilirubin 1.6 H, AST 35, ALT 57, Alkaline Phosphatase 69, C-Reactive Protein 6.8 H, Total Protein 8.0, Albumin 5.0, Globulin 3.0, Albumin/Globulin Ratio 1.7 04/25/25 11:29: Urine Color Yellow, Urine Appearance Clear, Urine pH 6.5, Ur Specific [place] 1.010, Urine Protein Negative, Urine Glucose (UA) Negative, Urine Ketones Negative, Urine Blood Negative, Urine Nitrate Negative, Urine Bilirubin Negative, Urine Urobilinogen 0.2, Ur Leukocyte Esterase Negative, Urine RBC None, Urine WBC None, Ur Squamous Epith Cells Occasional, Urine Bacteria Trace 04/26/25 06:06: WBC 11.0 H, RBC 5.45, Hgb 15.2, Hct 44.7, MCV 82.0, MCH 27.9, MCHC 34.0, RDW 12.6, Plt Count 175, MPV 9.7, Neut % (Auto) 66.1, Lymph % (Auto) 23.0, [place] % (Auto) 6.6, Eos % (Auto) 3.5, Baso % (Auto) 0.3, Neut # (Auto) 7.3, Lymph # (Auto) 2.5, [place] # (Auto) 0.7, Eos # (Auto) 0.4, Baso # (Auto) 0.0, Sodium 137, Potassium 4.0, Chloride 104, Carbon Dioxide 23, Anion Gap 14.0, BUN 11, Creatinine 0.90, Estimated Creat Clear 165, Estimated GFR 99, Est GFR ( Amer) 120, Glucose 94, Calcium 9.0, Total Bilirubin 2.2 H, AST 30, ALT 47, Alkaline Phosphatase 69, Total Protein 7.4, Albumin 4.6, Globulin 2.8, Albumin/Globulin Ratio 1.6 I & O for Labs for Last 24 Hours: Intake & Output 04/23/25 04/24/25 04/25/25 04/26/25 11:59 11:59 11:59 11:59 Intake Total 1300 / 1300 Output Total 0 / 0 Balance 1300 / 1300 Weight 220 lb 214 lb 8 oz Constitutional: no acute distress Respiratory: Absent respiratory distress Cardiac: Absent Tachycardia GI: Present soft Comments:: Left medial buttock/perianal abscess with overlying erythematous change Results Labs 04/26/25 06:06 04/26/25 06:06 Labs: Laboratory Results - last 24 hr 04/25/25 11:00: WBC 10.0, RBC 5.55, Hgb 15.9, Hct 45.6, MCV 82.2, MCH 28.6, MCHC 34.9, RDW 12.5, Plt Count 185, MPV 9.9, Neut % (Auto) 63.5, Lymph % (Auto) 23.7, [place] % (Auto) 6.4, Eos % (Auto) 5.6, Baso % (Auto) 0.4, Neut # (Auto) 6.3, Lymph # (Auto) 2.4, [place] # (Auto) 0.6, Eos # (Auto) 0.6 H, Baso # (Auto) 0.0, Sodium 137, Potassium 4.0, Chloride 104, Carbon Dioxide 27, Anion Gap 10.0, BUN 11, Creatinine 0.90, Estimated Creat Clear 169, Estimated GFR 99, Est GFR ( Amer) 120, Glucose 97, Calcium 9.5, Total Bilirubin 1.6 H, AST 35, ALT 57, Alkaline Phosphatase 69, C-Reactive Protein 6.8 H, Total Protein 8.0, Albumin 5.0, Globulin 3.0, Albumin/Globulin Ratio 1.7 04/25/25 11:29: Urine Color Yellow, Urine Appearance Clear, Urine pH 6.5, Ur Specific [place] 1.010, Urine Protein Negative, Urine Glucose (UA) Negative, Urine Ketones Negative, Urine Blood Negative, Urine Nitrate Negative, Urine Bilirubin Negative, Urine Urobilinogen 0.2, Ur Leukocyte Esterase Negative, Urine RBC None, Urine WBC None, Ur Squamous Epith Cells Occasional, Urine Bacteria Trace 04/26/25 06:06: WBC 11.0 H, RBC 5.45, Hgb 15.2, Hct 44.7, MCV 82.0, MCH 27.9, MCHC 34.0, RDW 12.6, Plt Count 175, MPV 9.7, Neut % (Auto) 66.1, Lymph % (Auto) 23.0, [place] % (Auto) 6.6, Eos % (Auto) 3.5, Baso % (Auto) 0.3, Neut # (Auto) 7.3, Lymph # (Auto) 2.5, [place] # (Auto) 0.7, Eos # (Auto) 0.4, Baso # (Auto) 0.0, Sodium 137, Potassium 4.0, Chloride 104, Carbon Dioxide 23, Anion Gap 14.0, BUN 11, Creatinine 0.90, Estimated Creat Clear 165, Estimated GFR 99, Est GFR ( Amer) 120, Glucose 94, Calcium 9.0, Total Bilirubin 2.2 H, AST 30, ALT 47, Alkaline Phosphatase 69, Total Protein 7.4, Albumin 4.6, Globulin 2.8, Albumin/Globulin Ratio 1.[address] scan - abdomen: report reviewed and image reviewed CT scan - pelvis: report reviewed and image reviewed Assessment and Plan *Assessment and plan (1) Perianal abscess: Problem Comment: Left perianal/medial buttock/ischiorectal fossa abscess Status: Acute Category: Medical Code(s): K61.0 - Anal abscess Plan: Continue overall management as per primary service (complete course of antibiotics, etc.) Incision and drainage this a.m. I have discussed the risks and benefits including, but not limited to: Bleeding Infection Damage to surrounding tissue Inherent risks of sedation The patient agrees to proceed.
[2025-04-26 07:05] LABS: Cholesterol 195 mg/dl (140-200); HDL Cholesterol 31 mg/dl (40-60); Triglycerides 234 mg/dl (30-150)
--- NOTE | 2025-04-26 07:46 | EXP.PHA.CONS ---
Pharmacy Consult Date: 04/26/25 Time: 07:46 Referring provider: DR. HERBERT Reason for Consult:: VANCOMYCIN DOSING Allergies Allergy/AdvReac Type Severity Reaction Status Date / Time No Known Allergies Allergy Verified 02/26/20 18:01 Home Medications ?Medication ?Instructions ?Recorded ?Confirmed ?Type cetirizine 10 mg tablet 10 mg PO DAILY PRN allergies 04/25/25 04/25/25 History New Prescriptions to Start Prescriptions: Height: 1.78 m Weight: 97.267 kg Laboratory Results:: Laboratory Results - last 24 hr 04/25/25 11:00: WBC 10.0, RBC 5.55, Hgb 15.9, Hct 45.6, MCV 82.2, MCH 28.6, MCHC 34.9, RDW 12.5, Plt Count 185, MPV 9.9, Neut % (Auto) 63.5, Lymph % (Auto) 23.7, [place] % (Auto) 6.4, Eos % (Auto) 5.6, Baso % (Auto) 0.4, Neut # (Auto) 6.3, Lymph # (Auto) 2.4, [place] # (Auto) 0.6, Eos # (Auto) 0.6 H, Baso # (Auto) 0.0, Sodium 137, Potassium 4.0, Chloride 104, Carbon Dioxide 27, Anion Gap 10.0, BUN 11, Creatinine 0.90, Estimated Creat Clear 169, Estimated GFR 99, Est GFR ( Amer) 120, Glucose 97, Calcium 9.5, Total Bilirubin 1.6 H, AST 35, ALT 57, Alkaline Phosphatase 69, C-Reactive Protein 6.8 H, Total Protein 8.0, Albumin 5.0, Globulin 3.0, Albumin/Globulin Ratio 1.7 04/25/25 11:29: Urine Color Yellow, Urine Appearance Clear, Urine pH 6.5, Ur Specific [place] 1.010, Urine Protein Negative, Urine Glucose (UA) Negative, Urine Ketones Negative, Urine Blood Negative, Urine Nitrate Negative, Urine Bilirubin Negative, Urine Urobilinogen 0.2, Ur Leukocyte Esterase Negative, Urine RBC None, Urine WBC None, Ur Squamous Epith Cells Occasional, Urine Bacteria Trace 04/26/25 06:06: WBC 11.0 H, RBC 5.45, Hgb 15.2, Hct 44.7, MCV 82.0, MCH 27.9, MCHC 34.0, RDW 12.6, Plt Count 175, MPV 9.7, Neut % (Auto) 66.1, Lymph % (Auto) 23.0, [place] % (Auto) 6.6, Eos % (Auto) 3.5, Baso % (Auto) 0.3, Neut # (Auto) 7.3, Lymph # (Auto) 2.5, [place] # (Auto) 0.7, Eos # (Auto) 0.4, Baso # (Auto) 0.0, Sodium 137, Potassium 4.0, Chloride 104, Carbon Dioxide 23, Anion Gap 14.0, BUN 11, Creatinine 0.90, Estimated Creat Clear 165, Estimated GFR 99, Est GFR ( Amer) 120, Glucose 94, Calcium 9.0, Total Bilirubin 2.2 H, AST 30, ALT 47, Alkaline Phosphatase 69, Total Protein 7.4, Albumin 4.6, Globulin 2.8, Albumin/Globulin Ratio 1.6, Triglycerides 234 H, Cholesterol 195, LDL Cholesterol Direct 143.94 H, VLDL Cholesterol 47 H, HDL Cholesterol 31 L, Cholesterol/HDL Ratio 6.3 H Medical History: Medical History (Updated 04/26/25 @ 06:54 by Palomo Hoskins MD) Seasonal allergies Assessment and Plan Assessment and plan all Dx Assessment and Plan for all problems:: Pharmacokinetic dosing service Objective: Patient: Floor: Age: 30 yo Serum creatinine: 0.9 mg/dL Height: 70.1 Inches Weight (kg): 97.3 Assessment: IBW (kg): 73.23 Dosing wt(kg): 97.3 Estimated Creatinine clearance (ml/min): 124.3 CRCL method: Cockcroft and Gault using ibw(default). Drug selected: Vancomycin Loading dose (mg): 0 Vd (liters): 77.8 (factor used: 0.8 L/kg) Vinod (hr-1): 0.108 Half life (hrs): 6.42 Recommended dose: 1500 mg Interval: 8 hrs Infusion time (hrs): 2.0 Predicted peak (mcg/mL): 30.0 Predicted trough (mcg/mL): 15.69 Total body weight is being used for vancomycin dosing. Recommendations: Give Vancomycin 1500 mg q 8 hrs with an expected Cpeak of 30.0 mcg/ml and an expected Ctrough of 15.69 mcg/ml ----Vanco only - ignore for aminoglycosides----- CLvanco= 8.40 L/hr AUC 0-24 /GARCIA Data: GARCIA 0.5 mcg/mL: AUC/GARCIA: 1071.4 GARCIA 1.0 mcg/mL: AUC/GARCIA: 535.7 --------- GARCIA 1.5 mcg/mL: AUC/GARCIA: 357.1 GARCIA 2.0 mcg/mL: AUC/GARCIA: 267.9
--- NOTE | 2025-04-26 08:00 | P.PNANES_ITS ---
[facility] Disclaimer: The information contained in this section may have been updated after the patient was seen, as this information can be updated by other users. Medical History (Updated 04/26/25 @ 06:54 by Palomo Hoskins MD) Seasonal allergies Surgical History (Updated 04/25/25 @ 17:25 by Delores Rivera, ESPERANZA) H/O wisdom tooth extraction Social History (Updated 04/25/25 @ 17:25 by Delores Rivera RN) Smoking Status: Never smoker alcohol intake: never substance use type: denies use current occupational status: other Travel in the last 8 weeks?: None [facility] Anesthesia Checklist Patient Identification Patient Identification: Arm Band Structural Data Admitted From: Home Planned Operative Procedure/s: I&D Perianal Abscess Consent for Planned Operative Procedure(s) Verified: Yes Verified Documents: Surgical Consent and History and Physical NPO Status Verified Time NPO: 00:00 Additional verifications Hx Blood Transfusions: No Airway Assessment Mallampati Score:: Class II C-Spine Mobility Assessed: Yes TMJ Mobility Assessed: Yes Dentition: Good Dentition Neurological Assessment Level of Consciousness: Awake, Alert and Appropriate Anesthesia Plan Anesthesia Risk discussed: Yes Anesthesia Plan: Verified ASA Class: II Anesthesia Type: General
[2025-04-26] MEDS: LIDOCAINE 1% 20ML MDV 20 ML (08:52)
[2025-04-26] MEDS: METRONIDAZ/SOD CHL 500 MG/100 ML PIGGYBACK 100 MG IV (08:54)
--- NOTE | 2025-04-26 09:00 | EXP.OP.NOTE ---
Date of procedure: 04/26/25 Pre-op Diagnosis:: Left perianal/ischiorectal fossa/medial buttock abscess Post-op Diagnosis:: same Procedure performed:: Incision and drainage of left perianal/ischiorectal fossa/medial buttock abscess Surgeon:: Palomo Hoskins MD Anesthesia: local and LMA Estimated blood loss (mL): 5 Operative findings:: Pocket of purulence evacuated Wound packed open Operative note:: After informed consent was obtained the patient was taken to the operating room and placed in the supine position. General anesthesia with a laryngeal mask airway was achieved. He was transferred to a left lateral decubitus position. The left buttock/perianal region was prepped and draped in a sterile fashion. Electrocautery was utilized to open the abscess cavity along the lateral margin. Fluid was obtained for Gram stain/culture. Purulent fluid was evacuated. The wound was packed with Kerlix and the entire region was infiltrated with 1% lidocaine. Dressings were applied and the patient was transferred to recovery in stable condition. Condition: stable Disposition: PACU Specimens:: Fluid for Gram stain/culture Complications:: No immediate
--- NOTE | 2025-04-26 09:14 | EXP.ANES.I ---
[facility] Anesthesia Record Part I Anesthesia Record I Intake, IV Amount: 300 Hydration: Adequate Estimated blood loss (mL): 10 Urine output (mL): 0 Blood Pressure: 109/65 SaO2: 95 Pulse Rate: 90 Airway Patency: Patent Respiratory Rate: 18 Temperature: 98.6 F Patient is:: Awake, Mask O2 and Stable Stable to PACU at:: 09:20
--- NOTE | 2025-04-26 09:42 | HMH.PHAAMS2 ---
- Antimicrobial Stewardship Review culture & sensitivity review Stewardship interventions: culture & sensitivity review, reviewed - no change Comments: continuing empiric treatment of abscess with vanco and zosyn
[2025-04-26 09:55] LABS: Hemoglobin A1C 5.2 % (4.0-6.0)
--- NOTE | 2025-04-26 11:13 | P.DS_ITS ---
General Admission date:: 04/25/25 HPI HPI HPI: This is a 30-year-old gentleman seen in consultation after evaluation emergency department for increasing perianal/medial buttock swelling/pain. See HPI forwarded from admission H&P below. Forwarded from admission H&P: Wilner Newman is a 30-year-old male without a significant medical history presents with progressive pain and a lump in the perianal area. Patient states he has felt a lump for a few weeks which has progressively gotten more painful but has not had much drainage. He states he has been dealing this for a few months, thinks it may have started after shaving in the perianal area. Denies fever/chills, but endorses an episode of suspected hemorrhoidal bleed about a month ago. Otherwise no known GI bleeding history, abdominal pains, family history of inflammatory bowel disease. Workup in the ED significant for CT abdomen/pelvis revealing left medial gluteal fold collection concerning for abscess, anal fistula could not be excluded. Also revealed fatty liver and mild splenomegaly. Given this finding, ED discussed case with general surgery who recommended admission with IV antibiotics and I&D in the morning. ED provider discussed case with me and I decided to admit patient for further evaluation management. Hospital Course Hospital Course Hospital Course: Wilner Newman is a 30-year-old male without a significant medical history presents with progressive pain and a lump in the perianal area. Patient states he has felt a lump for a few weeks which has progressively gotten more painful but has not had much drainage. He states he has been dealing this for a few months, thinks it may have started after shaving in the perianal area. Denies fever/chills, but endorses an episode of suspected hemorrhoidal bleed about a month ago. Otherwise no known GI bleeding history, abdominal pains, family history of inflammatory bowel disease. Workup in the ED significant for CT abdomen/pelvis revealing left medial gluteal fold collection concerning for abscess, anal fistula could not be excluded. Also revealed fatty liver and mild splenomegaly. Given this finding, ED discussed case with general surgery who recommended admission with IV antibiotics and I&D in the morning. ED provider discussed case with me and I decided to admit patient for further evaluation management. #Perianal abscess ? Presented with worsening lump and pain in the perianal area, CT abdomen/pelvis on admission revealed 4.5 x 1.9 cm perianal abscess. ? Initial WBC 10.0, CRP 6.8, no signs of sepsis. General surgery recommended admission with IV antibiotics. A1c 5.2%. ? General Surgery consulted, s/p incision and drainage of left perianal/isch iorectal fossa/medial buttock abscess on 04/26/2025. Patient tolerated procedure well. ? Treated with vancomycin, Zosyn during admission. Transitioned to Bactrim DS twice daily for 7 more days. ? Discharged with Bactrim as above, [place] as needed for pain control. Will follow-up with general surgery within 2 weeks. #Fatty liver disease #Splenomegaly ? Seen on CT abdomen/pelvis. LDL 143, follow-up with PCP further evaluation management. Total time spent on discharge: 32 minutes on chart review, counseling, documentation, and direct care with patient. Exam Data for Last 24 hours Vital signs and Labs for Last 24 Hours: Temp Pulse Resp BP Pulse Ox O2 Del Method O2 Flow Rate 98.6 F 88 12 121/94 H 95 Room Air 3 04/26/25 09:40 04/26/25 09:40 04/26/25 09:40 04/26/25 09:40 04/26/25 09:40 04/26/25 09:40 04/26/25 09:20 Laboratory Results - last 24 hr 04/25/25 11:00: Sodium 137, Potassium 4.0, Chloride 104, Carbon Dioxide 27, Anion Gap 10.0, BUN 11, Creatinine 0.90, Estimated Creat Clear 169, Estimated GFR 99, Est GFR ( Amer) 120, Glucose 97, Calcium 9.5, Total Bilirubin 1.6 H, AST 35, ALT 57, Alkaline Phosphatase 69, C-Reactive Protein 6.8 H, Total Protein 8.0, Albumin 5.0, Globulin 3.0, Albumin/Globulin Ratio 1.7 04/25/25 11:29: Urine Color Yellow, Urine Appearance Clear, Urine pH 6.5, Ur Specific [place] 1.010, Urine Protein Negative, Urine Glucose (UA) Negative, Urine Ketones Negative, Urine Blood Negative, Urine Nitrate Negative, Urine Bilirubin Negative, Urine Urobilinogen 0.2, Ur Leukocyte Esterase Negative, Urine RBC None, Urine WBC None, Ur Squamous Epith Cells Occasional, Urine Bacteria Trace 04/26/25 06:06: WBC 11.0 H, RBC 5.45, Hgb 15.2, Hct 44.7, MCV 82.0, MCH 27.9, MCHC 34.0, RDW 12.6, Plt Count 175, MPV 9.7, Neut % (Auto) 66.1, Lymph % (Auto) 23.0, [place] % (Auto) 6.6, Eos % (Auto) 3.5, Baso % (Auto) 0.3, Neut # (Auto) 7.3, Lymph # (Auto) 2.5, [place] # (Auto) 0.7, Eos # (Auto) 0.4, Baso # (Auto) 0.0, Sodium 137, Potassium 4.0, Chloride 104, Carbon Dioxide 23, Anion Gap 14.0, BUN 11, Creatinine 0.90, Estimated Creat Clear 165, Estimated GFR 99, Est GFR ( Amer) 120, Glucose 94, Hemoglobin A1c 5.2, Calcium 9.0, Total Bilirubin 2.2 H, AST 30, ALT 47, Alkaline Phosphatase 69, Total Protein 7.4, Albumin 4.6, Globulin 2.8, Albumin/Globulin Ratio 1.6, Triglycerides 234 H, Cholesterol 195, LDL Cholesterol Direct 143.94 H, VLDL Cholesterol 47 H, HDL Cholesterol 31 L, Cholesterol/HDL Ratio 6.3 H I & O for Last 24 hours: Intake & Output 04/23/25 04/24/25 04/25/25 04/26/25 23:59 23:59 23:59 23:59 Intake Total 760 / 1000 940 / 940 Output Total 0 / 0 Balance 760 / 1000 940 / 940 Weight 97.296 kg 97.267 kg Constitutional Constitutional: no acute distress *Routine HEENT Exam Head: Present normocephalic Eye: Present EOMI and PERRL ENT: Present mucous membranes moist *Routine Neck Exam Neck: Present supple; Absent lymphadenopathy *Routine Respiratory Exam Respiratory: Present CTA bilaterally *Routine Cardiovascular Exam Cardiovascular: Present RRR *Routine Abdominal Exam Abdominal: Present soft and normoactive bowel sounds; Absent tenderness *Routine Extremities Exam Extremities: Absent cyanosis, clubbing or edema *Routine Skin Exam Skin: Present warm; Absent rash *Routine Neurological Exam Neurological: Present alert and oriented X3 Results Data Completed and Pending Labs on day of discharge: Labs from last 24 hours 04/26/25 04/25/25 04/25/25 06:06 11:29 11:00 WBC 11.0 H RBC 5.45 Hgb 15.2 Hct 44.7 MCV 82.0 MCH 27.9 MCHC 34.0 RDW 12.6 Plt Count 175 MPV 9.7 Neut % (Auto) 66.1 Lymph % (Auto) 23.0 [place] % (Auto) 6.6 Eos % (Auto) 3.5 Baso % (Auto) 0.3 Neut # (Auto) 7.3 Lymph # (Auto) 2.5 [place] # (Auto) 0.7 Eos # (Auto) 0.4 Baso # (Auto) 0.0 Sodium 137 137 Potassium 4.0 4.0 Chloride 104 104 Carbon Dioxide 23 27 Anion Gap 14.0 10.0 BUN 11 11 Creatinine 0.90 0.90 Estimated Creat Clear 165 169 Estimated GFR 99 99 Est GFR ( Amer) 120 120 Glucose 94 97 Hemoglobin A1c 5.2 Calcium 9.0 9.5 Total Bilirubin 2.2 H 1.6 H AST 30 35 ALT 47 57 Alkaline Phosphatase 69 69 C-Reactive Protein 6.8 H Total Protein 7.4 8.0 Albumin 4.6 5.0 Globulin 2.8 3.0 Albumin/Globulin Ratio 1.6 1.7 Triglycerides 234 H Cholesterol 195 LDL Cholesterol Direct 143.94 H VLDL Cholesterol 47 H HDL Cholesterol 31 L Cholesterol/HDL Ratio 6.3 H Urine Color Yellow Urine Appearance Clear Urine pH 6.5 Ur Specific [place] 1.010 Urine Protein Negative Urine Glucose (UA) Negative Urine Ketones Negative Urine Blood Negative Urine Nitrate Negative Urine Bilirubin Negative Urine Urobilinogen 0.2 Ur Leukocyte Esterase Negative Urine RBC None Urine WBC None Ur Squamous Epith Cells Occasional Urine Bacteria Trace DS: Diagnosis Discharge Diagnosis (1) Perianal abscess: Status: Acute Code(s): K61.0 - Anal abscess Problem details: Left perianal/medial buttock/ischiorectal fossa abscess Meds Home Medications and Allergies Home Medications ?Medication ?Instructions ?Recorded ?Confirmed ?Type cetirizine 10 mg tablet 10 mg PO DAILY PRN allergies 04/25/25 04/25/25 History hydrocodone 5 mg-acetaminophen 325 1 tab PO Q6HP PRN M oderate Pain 04/26/25 Rx mg tablet (4-6) #12 tabs sulfamethoxazole 800 1 tab PO BID 7 days #14 tabs 04/26/25 Rx mg-trimethoprim 160 mg tablet (Bactrim DS) New Prescriptions to Start Prescriptions: hydrocodone-acetaminophen Nnamdi Ramirez sulfamethoxazole-trimethoprim [Bactrim DS] Nnamdi Ramirez Allergies Allergy/AdvReac Type Severity Reaction Status Date / Time No Known Allergies Allergy Verified 02/26/20 18:01 Discharge Plan Disposition Patient Disposition: Home, Self-Care Condition: Fair Follow up Plan Follow up with: Palomo Hoskins MD [Staff Physician, General Surgery] - 05/02/25 1:30 pm Prescriptions/Medication Reconciliation: New sulfamethoxazole-trimethoprim [Bactrim DS] 800-160 mg tablet 1 tab PO BID 7 Days Qty: 14 0RF hydrocodone-acetaminophen 5-325 mg Tablet 1 tab PO Q6HP PRN (Reason: Moderate Pain (4-6)) Qty: 12 0RF Continued cetirizine 10 mg Tablet 10 mg PO DAILY PRN (Reason: allergies) Problem Reconciliation Problems Reviewed?: Yes Patient Discharge Instructions Additional Instructions: Dry dressing changes at least daily starting on postoperative day 1 Patient Instructions: DI for Incision and Drainage of a Skin Abscess, DI for Surgical Site Infection Print Language: Uz[place] Providers Primary Care Provider: Provider,Referral Admit Provider: Nnamdi Ramirez Attending Provider: Nnamdi Ramirez
[2025-04-26] MEDS: SULFA/TRIMETHOPRIM 1 TABLET 1 EACH PO (11:51)
--- NOTE | 2025-04-26 15:02 | P.PNANES_ITS ---
[facility] Anesthesia Record Part II Anesthesia Record Part II Discharge Time: 09:40 Destination: Medical Surgical Department PACU nurse assessment reviewed?: Yes Patient Condition:: Good Anesthesia Complications:: None Swallowing reflex intact?: Yes Airway Patency: Patent Cyanosis?: No Blood Pressure: 121/94 SaO2: 95 Respiratory Rate: 12 Pulse Rate: 88 Temperature: 98.6 F Mental Status: Alert & Oriented Pain level:: 0 Nausea and/or vomitting:: None Intake, IV Amount: 0 Hydration: Adequate
--- NOTE | 2025-04-27 10:26 | SW/DCPLANNER ---
Spoke with patient on the phone. Patient stated that he is doing good. Patient stated that he is aware of his upcoming appointment. Patient stated that he was able to get his new medicine picked up from the pharmacy. patient stated that he did not know where he needs to go today for the dressing change. I explained to patient about where he needs to go. Patient stated that he has no concerns or questions at this time. Darcie Keene
== END 2025-04-26 12:57 | disposition home or self-care (01) ==
LOC: ER 13:55 → 2ND 16:38
PROVIDERS: Surgery; Admitting Provider Student in an Organized Health Care Education/Training Program; Emergency Provider Student in an Organized Health Care Education/Training Program; Visit Provider Student in an Organized Health Care Education/Training Program
DX: K61.0 Anal abscess (principal); K76.0 Fatty (change of) liver, not elsewhere classified; R16.1 Splenomegaly, not elsewhere classified
CPT/HCPCS: 46050; 36415; 74177; 80053; 80061; 81001; 83036; 85025; 86140; 87040; 87070; 87077; 87186; 87205; 96365; 96366; 96367; 96374; 96376; 99285; G0378; J1100; J1200; J1836; J2003; J2250; J2405; J2543; J2704; J3010; J3373; J3375; J7050; Q9967

== ENCOUNTER 2025-04-27 13:43 | Outpatient (CLI) | payer SELFPAY | END 2025-04-27 23:59 | disposition home or self-care (01) | PROVIDERS: Visit Provider Student in an Organized Health Care Education/Training Program | DX: K61.0 Anal abscess (principal) | CPT/HCPCS: 99202; G0463 ==

== ENCOUNTER 2025-05-01 12:48 | Outpatient (CLI) | payer SELFPAY | END 2025-05-01 23:59 | disposition home or self-care (01) | PROVIDERS: Visit Provider Student in an Organized Health Care Education/Training Program | DX: K61.0 Anal abscess (principal) | CPT/HCPCS: 99211; G0463 ==

== ENCOUNTER 2025-05-14 12:19 | Outpatient (CLI) | payer SELFPAY | END 2025-05-14 23:59 | disposition home or self-care (01) | PROVIDERS: Visit Provider Student in an Organized Health Care Education/Training Program | DX: K61.0 Anal abscess (principal) | CPT/HCPCS: G0463 ==